=== PATIENT | female | born 1990 | race African-American/Black ===

== ENCOUNTER 2019-05-29 05:11 | Emergency (ER) | payer OTHER ==
[2019-05-29 05:33] VITALS: BP 126/78; PULSE 73; TEMP 98.3; BMI 35.4
--- NOTE | 2019-05-29 05:57 | PDOC ---
History of Present Illness - General Chief Complaint: Pain Stated Complaint: TINGLING,NUMBNESS/ARMS Time Seen by Provider: 05/29/19 05:40 - History of Present Illness Initial Comments: Ms. Cm is a 28 y/o female with no significant PMH presenting with tingling sensation that goes down both of her arms. Reports that this started a couple of days ago but she came in today because she wanted to get it checked out. Reports that the pain is exacerbated when she bends her arms to look at her phone. Denies fever, chills. Denies nausea/vomiting. Denies chest pain/shortness of breath. Denies weakness or loss of sensation in the arms. Past History - Past Medical History Allergies/Adverse Reactions: Allergies Allergy/AdvReac Type Severity Reaction Status Date / Time No Known Allergies Allergy Verified 05/29/19 05:33 Anemia: Yes COPD: No - Immunization History Immunization Up to Date: Yes - Psycho Social/Smoking Cessation Hx Smoking History: Current every day smoker Number of Cigarettes Smoked Daily: 2 Information on smoking cessation initiated: No Hx Alcohol Use: No Drug/Substance Use Hx: No Review of Systems - Review of Systems Comments:: GENERAL/CONSTITUTIONAL: No fever or chills. No weakness._ HEAD, EYES, EARS, NOSE AND THROAT: No change in vision. No change in hearing. No sore throat._ CARDIOVASCULAR: No chest pain or shortness of breath_ RESPIRATORY: Denies cough, hemoptysis_ GASTROINTESTINAL: No nausea, vomiting, diarrhea or constipation._ GENITOURINARY: No dysuria, frequency, or change in urination._ MUSCULOSKELETAL: No joint or muscle swelling or pain. No neck or back pain. Reports tingling in bilateral upper extremities. SKIN: No rash_ NEUROLOGIC: No headache, vertigo, loss of consciousness, or change in strength/ sensation._ *Physical Exam - Vital Signs Last Vital Signs Temp Pulse Resp BP Pulse Ox 98.3 F 73 18 126/78 99 05/29/19 05:30 05/29/19 05:30 05/29/19 05:30 05/29/19 05:30 05/29/19 05:30 - Physical Exam Comments: GENERAL: Awake, alert, and oriented to person/place/time, in no acute distress_ HEAD: No signs of trauma, normocephalic, atraumatic _ EYES: PERRLA, EOMI, sclera anicteric, conjunctiva clear_ ENT: Hearing grossly normal, nares patent, oropharynx clear without exudates. No uvular deviation. Moist mucosa_ NECK: Normal ROM, supple, no lymphadenopathy, JVD, or masses_ LUNGS: No distress, speaks in full sentences, clear to auscultation bilaterally _ HEART: Regular rate and rhythm, normal S1 and S2, no murmurs appreciated, peripheral pulses normal and equal bilaterally._ ABDOMEN: Soft, nontender, normoactive bowel sounds. No guarding, no rebound. No masses_ EXTREMITIES: Normal inspection, Normal range of motion, no edema. No clubbing or cyanosis. BUE: Engineering Technical Writer strength 5/5 bilateral and equal. Finger abduction and thumb flexion/extension 5/5 bilaterally. Pulses 2+ bilaterally. Cap refill <2 sec bilaterally. Flexion/extension wrists/elbows/shoulders bilaterally 5/5. NEUROLOGICAL: Cranial nerves II through XII grossly intact. Normal speech, normal gait, no focal sensorimotor deficits _ SKIN: Warm, Dry, normal turgor, no rashes or lesions noted_ Medical Decision Making - Medical Decision Making 05/29/19 05:55 28F no significant PMH presenting with tingling in bilateral upper extremities. Neurovascularly intact distally in both upper extremities. Patient describes the sensation as following the ulnar nerve distribution. Plan to d/c home, f/u PCP as needed. Discharge - Discharge Information Problems reviewed: Yes Clinical Impression/Diagnosis: Tingling of both upper extremities Condition: Stable Disposition: HOME - Admission No - Follow up/Referral Referrals: Benny Maddox MD [Staff Physician] - - Patient Discharge Instructions Additional Instructions: Please make a follow up appointment with your PCP (referral provided here if you do not have one). If you begin experiencing tingling, try repositioning your arms and avoid positions that bring on the tingling. If you experience any new, worsening, or concerning symptoms, including tingling that does not go away, please return to the emergency department. - Post Discharge Activity
--- NOTE | 2019-05-29 06:18 | PDOC ---
Attending Attestation - Resident Resident Name: Car Newell - ED Attending Attestation I have performed the following: I have examined & evaluated the patient, The case was reviewed & discussed with the resident, I agree w/resident's findings & plan, Exceptions are as noted - HPI HPI: 05/29/19 06:10 Ms Cm is a 28 yo F who presents to the ER due to concern about a tingling sensation that goes down both of her arms Patient states this has been happening for the past few days. No trauma to the arms. No numbness. No sensory deficit. No pain. She has the symptoms only when she is sitting in her bed holding her cell phone. When she moves her arms the symptoms resolved. Patient has not had the symptoms prior to several days ago No arm swelling hands are not cold No history of DVT No neck pain Patient did start a new job, working for the [employer] 05/29/19 06:18 - Physicial Exam PE: 05/29/19 06:18 GENERAL: The patient is in no acute distress. ENT: Ears normal, nares patent, oropharynx clear without exudates. Moist mucous membranes. NECK: Normal range of motion, supple LUNGS: Breath sounds equal, clear to auscultation bilaterally. HEART:Regular rate and rhythm, normal S1 and S2 without murmur, rub or gallop. ABDOMEN: Soft, nontender, normoactive bowel sounds. EXTREMITIES: Normal range of motion, no edema. NEUROLOGICAL: Cranial nerves II through XII grossly intact. Normal speech. No focal neurological deficits. Left upper extremity, sensation intact, no swelling. 2+ radial pulse, 2+ ulnar pulse No limitations in range of motion. Strength 5/5 SKIN: Warm, Dry, normal turgor, no rashes or lesions noted. 05/29/19 06:19 - Medical Decision Making 05/29/19 06:19 28-year-old female presenting to the emergency department with what seems to be a nerve irritation when she is using her phone in a certain position When she stops using her phone in this manner, her symptoms resolve Pt asked to follow up with PMD Return to the ER for any other concerns or complaints Clinical impression: Nerve irritation related to hand positioning Smoking cessation
== END 2019-05-29 06:16 | disposition home or self-care (01) ==
LOC: JER 05:11
DX: R20.2 Paresthesia of skin (principal)
CPT/HCPCS: 99281-25